=== PATIENT | female | born 1990 | race Caucasian/White ===

== ENCOUNTER 2020-12-29 16:28 | Outpatient (REF) | payer OTHER, SELFPAY ==
--- NOTE | 2020-12-29 16:00 | PAPFT_PTH ---
PATIENT: Mari Joy LOC: [facility]#:[id number] AGE/SX: 30/F ROOM: RE12/29/[address]: LEONELA Victoria : 1990 BED: DIS: 12/29/2020 SPEC #: [id number] RECD: 12/30/20 13:01 STATUS: MALICK FERNANDEZ #: [id number] LAQUITA: 12/29/20 16:[address]: Loretta Swan DEPT: [facility] Cytology RECD BY: Elaine Russell Tissues: 1 - CX/ENDOCX FOR PAP SMEARS Procedures: PAP THIN PREP/UVM Screening HPV DNA PROBE Comments: [id number]
== END 2020-12-29 16:29 | disposition home or self-care (01) ==
LOC: NCHCN 16:28
PROVIDERS: PCP Nurse Practitioner Family; Visit Provider Nurse Practitioner Family
DX: Z12.4 Encounter for screening for malignant neoplasm of cervix (principal); Z11.51 Encounter for screening for human papillomavirus (HPV)
CPT/HCPCS: 88142; 87624

== ENCOUNTER 2021-02-01 00:54 | Outpatient (CLI) | payer OTHER, SELFPAY ==
--- NOTE | 2021-02-01 07:35 | DI.US_ITS ---
APPROVED REPORT EXAM: Comprehensive 2D, Doppler, and color-flow Echocardiogram Patient Location: Out-Patient Human Resources Operations Director: Nga Payne RDCS (AE) Indications: Patenet foramen ovale Echo Enhancing Agent Indication: Rule out Shunt Agent(s) / Amount(s) Used: Agitated Saline 30.0 cc Comments: Contrast study was performed with 3 IV injections of 10ccs of agitated normal saline, at re st, with cough and post valsalva maneuver. Negative contrast study for shunt flow. Other Information Study Quality: Good Conclusion Normal left ventricular wall thickness and chamber size. Estimated ejection fraction is 60 to 65%. 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 Agitated saline injection disclosed no evidence of intracardiac shunt There is no structural or hemodynamically significant valvular disease Wall motion Left Ventricle The left ventricle is normal size. The left ventricular systolic function is normal. The left ventric ular ejection fraction is within the normal range. There is normal left ventricular wall thickness. T here is normal LV segmental wall motion. There is no ventricular septal defect visualized. LVEF is 60 -65%. Right Ventricle The right ventricle is normal size. The right ventricular systolic function is normal. The RVSP is 24 .3mmHg. Atria The left atrium size is normal. The right atrium size is normal. Atrial septum is slightly bowed towa rd the right. Saline bubble contrast intravenous injection does not demonstrate PFO. Aortic Valve The aortic valve is normal in structure. Aortic valve is trileaflet. There is no aortic valvular sten osis. No aortic regurgitation is present. Mitral Valve The mitral valve is normal in structure. No evidence of mitral valve stenosis. Trace mitral regurgita tion. Tricuspid Valve The tricuspid valve is normal in structure. There is no tricuspid valve stenosis. Trace tricuspid reg urgitation. Pulmonic Valve The pulmonary valve is normal in structure. There is no pulmonic valvular stenosis. There is no pulmo junie valvular regurgitation. Great Vessels The aortic root is normal in size. The ascending aorta is normal in size. IVC is normal in size and c ollapses >50% with inspiration. Pericardium There is no pericardial effusion. 2D Dimensions IVSD d PLAX 0.92 cm F: 0.6-1.0 LV Vol A2C d MOD 93.7 mL LVPW d PLAX 0.94 cm F: 0.6 - 1.0 LV Vol A4C d MOD 124.5 mL LVID d PLAX 4.81 cm F: 3.8 - 5.2 LA vol/ BSA A2C s A-L 21.8 mL/m2 LVDs 3.05 cm F: 2.2 - 3.5 LA vol/ BSA A4C s A-L 37.5 mL/m2 Ao Root d 2.41 cm F: 2.7 - 3.3 LA Vol/ BSA Biplane s A-L 32.9 mL/m2 RA Area A4C 13.41 cm2 LA Area A4C s MOD 20.72 cm2 RA Vol/ BSA A4C s A-L 18.9 mL/m2 LA Area A2C s MOD 13.68 cm2 Ao Asc Diam d 2.55 cm F: 2.3 - 3.1 LV EF A4C MOD 59.5 % LV EF Teichholz 65.6 % LV EF A2C MOD 60.4 % LVEF (Joyner's) 60.15 % F: 54 - 74 LV EF Biplane MOD 60.1 % LV Volume 84.99 mL F: 46 - 106 SV 66.73 mL LV Volume Index 45.20 mL/m2 F: 29 - 61 SV Index 35.52 mL/m2 LV Vol Biplane MOD 110.9 mL FS 36.05 % M-Mode TAPSE 2.70 cm (M/F) >1.7 LV Diastology MV E' medial 0.116 (>0.07 m/s) E/A Ratio 1.3 LV E/e MED 6.85 (<14) MV E Vmax 0.80 (0.4-1.3 m/s) MV E' lateral 0.150 (>0.1 m/s) MV A Vmax 0.60 (0.4-1.3 m/s) LV E/e LAT 5.25 (<14) MV E/A Ratio 1.24 MV E/E' medial 6.86 MV E/E' lateral 5.30 Aortic Valve LVOT Area 2.87 cm2 AoV Area Vmax 2.54 cm2 LVOT Vmax 1.06 m/s AoV Area/ BSA (Vmax) 1.35 cm2/m2 LVOT Mean Adonay. 0.71 m/s MINA Mean Adonay. 2.41 cm2 LVOT Peak Grad 4.5 mmHg MINA Mean Adonay. Index 1.28 cm2/m2 LVOT Mean Grad 2.3 mmHg LVOT VTI 0.275 m LVOT Diam s 1.90 cm AoV Vmax 1.20 m/s Velocity Ratio 0.88 AoV Mean Adonay. 0.85 m/s AoV Peak Grad 5.7 mmHg LVOT SV 79.15 mL AoV Mean Grad 3.2 mmHg AoV VTI 0.297 m AoV Area VTI 2.67 cm2 AoV Area/ BSA (VTI) 1.42 cm/m2 Mitral Valve MV DT 234 (160-240 msec) MV PHT 68 msec MV Area PHT 3.24 cm2 MV VTI 0.311 m MV VTI Annulus 0.330 m MV Area VTI 2.71 (4.0-6.0 cm2) Pulmonary Valve PV Vmax 0.89 (0.5-1.5 m/s) RVOT Peak Gr. 3.06 mmHg PV Peak Grad 3.2 mmHg RVOT Mean Gr. 1.40 mmHg PV Mean Grad 1.6 mmHg RVOT VTI 0.197 m PV VTI 0.222 m RVOT Vmax 0.88 m/s Tricuspid Valve TR Peak Grad 21.3 mmHg TR Vmax 2.31 m/s RA Pressure 3.00 mmHg RVSP (TR) 24.3 mmHg
== END 2021-02-01 01:14 ==
PROVIDERS: PCP Nurse Practitioner Family; Visit Provider Nurse Practitioner Family
DX: Q21.1 Atrial septal defect (principal)
CPT/HCPCS: 93306

== ENCOUNTER 2021-07-02 11:01 | Outpatient (CLI) | payer OTHER, SELFPAY ==
[2021-07-02 11:33] LABS: Source Nasal/Nares
[2021-07-02 14:17] LABS: COVID-19 PCR Negative (Negative)
== END 2021-07-02 11:02 | disposition home or self-care (01) ==
PROVIDERS: PCP Nurse Practitioner Family; Visit Provider Family Medicine
DX: Z20.822 Contact with and (suspected) exposure to COVID-19 (principal)
CPT/HCPCS: 87635

== ENCOUNTER 2021-10-06 03:52 | Outpatient (CLI) | payer OTHER, SELFPAY ==
[2021-10-06 15:49] LABS: Abs Immature Grans 0.03 10^3/uL (0.0-0.06); Absolute Basophil Count 0.04 10^3/uL (0.0-0.2); Absolute Eosinophil Count 0.21 10^3/uL (0.0-0.7); Absolute Lymphocyte Count 1.92 10^3/uL (1.2-3.4); Absolute Monocyte Count 0.58 10^3/uL (0.1-0.8); Absolute Neutrophil Count 5.68 10^3/uL (1.2-6.7); Basophils % 0.5; Eosinophils % 2.5; HCT 37.6 % (36.0-46.0); HGB 12.4 g/dL (11.2-15.7); Immature Grans % 0.4; Lymphocytes % 22.7; MCH 31.2 pg (27.0-33.0); MCV 94.5 fL (80-95); MPV 11.3 fL (8.0-11.0); Monocytes % 6.9; Nucleated RBC 0 %; Platelet Count 149 10^3/uL (130-400); RBC 3.98 10^6/uL (3.93-5.22); RDW-SD 44.7 fL; WBC 8.46 10^3/uL (4.4-10.8)
[2021-10-06 16:00] LABS: Kit/Specimen SENT
[2021-10-09 10:45] LABS: Hepatitis C Ab w Rflx HCV PCR Negative (Negative)
[2021-10-09 11:42] LABS: Hepatitis B Surface Ag Negative (Negative)
[2021-10-09 11:45] LABS: Varicella IgG Antibody Positive (See Note)
[2021-10-09 11:50] LABS: Rubella IgG Ab (UVM) Positive (See Note)
[2021-10-09 12:13] LABS: HIV-1/2 Ag & Ab Screen Negative (Negative)
[2021-10-11 15:55] LABS: Syphilis IgG w/Reflex Nonreactive (Nonreactive)
== END 2021-10-06 03:53 | disposition home or self-care (01) ==
LOC: LBO 03:52
PROVIDERS: Advanced Practice Midwife; PCP Nurse Practitioner Family; Visit Provider Advanced Practice Midwife
DX: Z34.91 Encounter for supervision of normal pregnancy, unspecified, first trimester (principal)
CPT/HCPCS: 36415; 86787; 86803; 86850; 86900; 86901; 87340; 87389; 84443; 85025; 86762; 86780

== ENCOUNTER 2021-10-06 16:43 | Outpatient (REF) | payer OTHER, SELFPAY ==
[2021-10-06 17:36] LABS: *AMPHETAMINES SCREEN URINE Negative (Negative); *BARBITURATES SCREEN URINE Negative (Negative); *BENZODIAZEPINES SCREEN URINE Negative (Negative); Cannabinoids THC Negative (Negative); Cocaine Screen,Urine Negative (Negative); METHADONE URINE SCREEN Negative (Negative); OPIATES URINE SCREEN Negative (Negative)
[2021-10-06 17:37] LABS: Tricyclic Antidepressants Negative (Negative)
[2021-10-09 15:33] LABS: Chlamydia Result Negative (Negative); GC Result Negative (Negative)
[2021-10-12 08:56] LABS: Buprenorphine Negative ng/mL (Cutoff: 5.0); Norbuprenorphine Negative ng/mL (Cutoff: 2.5)
== END 2021-10-06 16:44 | disposition home or self-care (01) ==
LOC: LBN 16:43
PROVIDERS: PCP Nurse Practitioner Family; Visit Provider Advanced Practice Midwife
DX: Z34.91 Encounter for supervision of normal pregnancy, unspecified, first trimester (principal)
CPT/HCPCS: 80307; 87491; 87591; 87086

== ENCOUNTER 2021-11-05 09:32 | Emergency (ER) | payer OTHER, SELFPAY ==
[2021-11-05 09:34] VITALS: BP 106/72; PULSE 67; RESP 16; TEMP 36.4; O2SAT 98
--- NOTE | 2021-11-05 10:05 | ED.GENADUL_ITS ---
Discharge Plan Disposition Patient Disposition: HOME Condition: Stable Discharge Details Clinical Impression: Hematoma of arm Primary Care Provider: Loretta Swan ED Provider: Tha Haley Home Meds and New Rx's Prescriptions: Continued prenat.vits,kirt,qhh-bkbh-awqht Tablet 1 tab PO DAILY 0RF salicylic acid 2 % cream 1 applic topical DAILY 0RF Discharge Instructions Instructions: Contusion in Adults (ED) Additional Instructions: Tetanus status is up-to-date. Your examination is consistent with a hematoma, no signs of infection at this time. Cool and/or warm compresses every 2 hours for 20 minutes. Please watch for new or worsening symptoms and return to the ER for any concerns. Medical Decision Making 31-year-old female, , qepya-dswa-sdbdnuij, tetanus status up-to-date, presents to the ER today for evaluation of a right wrist-forearm injury she sustained yesterday. She states that a blackberry thorn pricked her wrist. Denies any obvious foreign body. Denies numbness, tingling, weakness. Concern for hematoma versus infection. Clinically she appears well, nontoxic There is no of infection, examination is consistent with a hematoma. We discussed signs and symptoms of infection and standard discharge and return precautions were provided. Patient and family have no additional questions or concerns and are comfortable with this plan. This documentation was generated using Red Stampation system, please disregard any oddities of phrase or misspellings. Medical Records Medical records reviewed: Yes I reviewed the patient's medical records. HPI General Mode of arrival: ambulatory . Date/Time Provider Initiated Documentation: 11/05/21 09:42 . Limitations to Documentation: no limitations . Information obtained by: patient and family . History of Present Illness 31 year old F presents to the emergency department with the chief complaint of R wrist injury, described as mild, with intensity rated at 1. Quality is described as aching, and is localized to the right and upper extremity. Patient reports no radiation. Patient started experiencing this day(s) (1) and it has been constant. improves with No relieving factors improve symptom(s), No exacerbating factors reported . Patient notes no other symptoms.. Patient did receive the following treatments prior to arrival, none Related Data Home Medications Medication Instructions Recorded Confirmed prenat.vits,kirt,lin-ixcd-hxjjk 1 tab PO DAILY 08/23/21 11/05/21 salicylic acid 2 % topical cream 1 applic TOPICAL DAILY 10/06/21 11/05/21 Allergies Allergy/AdvReac Type Severity Reaction Status Date / Time cat dander Allergy Intermediate Verified 11/05/21 09:43 sulfamethoxazole Allergy Intermediate Verified 11/05/21 09:43 [From Bactrim] trimethoprim [From Bactrim] Allergy Intermediate Verified 11/05/21 09:43 cefaclor [From Ceclor] Allergy Unknown Verified 11/05/21 09:43 General Stated Complaint: RashLesion NAZIA: 4 Review of Systems Constitutional Constitutional: Denies fever(s) and Denies weakness Musculoskeletal Musculoskeletal: Denies deformity, Denies arthralgias, Denies numbness, Denies stiffness and Denies tingling Integumentary/Breasts Skin/Breast: Denies erythema Neurologic Neurologic: Denies numbness, Denies tingling and Denies weakness PFSH All Active Problems Hematoma of arm (Acute) Recurrent oral herpes simplex (Acute) PFO (patent foramen ovale) (Acute) normal echo 2020 (Acute) Medical History Amenorrhea Iron deficiency anemia Surgical History S/P left inguinal hernia repair (~2013) Family History Mother Depression Substance abuse Atrial septal defect open heart repair in early 40's Father Diabetes Hyperlipidemia Hypertension Sister No problems noted. Brother Hyperlipidemia Brother No problems noted. Maternal Grandfather , Late 80s Multiple myeloma Paternal Grandfather , in 40s from lung cancer Lung cancer Maternal Grandmother , at 94 from heart failure Heart disease Stroke Hypertension Dementia Parkinson disease Atrial fibrillation Paternal Grandmother Stroke Hyperlipidemia Social History Smoking/Tobacco Use Status: Never Second Hand Exposure: No Smoking risk assessment performed?: Yes Alcohol Intake: current Alcohol Intake frequency: a few times a month Alcohol type: beer Drug use: Never Substance use type: does not use Caregiver/Support person: No Household members: significant other Housing: house Communication Needs: None Do you need help understanding health information?: Never Pets and animals: Yes Pets and animals: dog(s) Sexually active: Yes Do you think of yourself as: straight/heterosexual Current gender identity: female What is your relationship status?: living with partner How often do you talk on the phone with friends or family?: three or more times per week How often do you get together with friends or relatives?: decline to answer How often do you attend moravian or yazidism services?: decline to answer Do you belong to any clubs or organized social groups?: decline to answer Panel score (0-1 are the most socially isolated patients): 2 What type of physical activity do you participate in: weight lifting and other Details: boxing,hiking Duration: 30-45 minutes/day Frequency: 3-4 times per week Aracely/Tenriism: No preference Special aracely needs: No Seatbelt use: always Helmet use: Yes Helmet use: always Drive intox or ride w/intox commercial driver's license driver: No Do you feel safe at home: Yes Do you feel safe in your relationship?: Yes History History 1 Para 0 Hx # Term Pregnancies 0 Multiple births 0 Hx # Pregnancies 0 Ectopic pregnancies 0 AB induced 0 Hx Number of Living Children 0 AB spontaneous 0 Exam Const General: cooperative, healthy appearing, comfortable and no acute distress Orientation: alert and awake HENIN Head: normal to inspection, normocephalic and atraumatic Eyes Conjunctivae: conjunctivae normal Neck Neck: normal visual inspection, trachea midline and supple Resp Effort & Inspection: normal respiratory effort and able to speak in complete sentences Cardio Rate: regular rate Rhythm: regular rhythm Skin General skin exam: no rashes or lesions noted Neuro General: patient alert, patient awake, moves all extremities and no focal motor deficits Cognition: normal cognition Speech: speech normal Gait: normal gait Motor: muscle tone normal throughout Sensory Exam: no sensory deficits noted Extrem General: full ROM and capillary refill normal Elbow/forearm/wrist images: 1. Contusion-hematoma. Centrally there is a puncture wound. There is no warmth, erythema, tenderness. No lymphangitic streaking. No induration or fluctuance. Normal radial pulse and capillary refill. Neuro, vascular, tendon intact. Psych Appearance: grossly normal Mental Status: mental status grossly normal Course Vital Signs Vital signs: Vital Signs Temperature 36.4 C L 11/05/21 09:34 Pulse 67 11/05/21 09:34 Respiratory Rate 16 11/05/21 09:34 Blood Pressure 106/72 11/05/21 09:34 Pulse Oximetry 98 11/05/21 09:34 Temperature 36.4 C L 11/05/21 09:34 Temperature Source Skin 11/05/21 09:34 Pulse 67 11/05/21 09:34 Respiratory Rate 16 11/05/21 09:34 Respiratory Effort 11/05/21 09:41 Blood Pressure 106/72 11/05/21 09:34 Blood Pressure Position Supine 11/05/21 09:34 Pulse Oximetry 98 11/05/21 09:34 Oxygen Delivery Method Room Air 11/05/21 09:34 Oxygen Flow Rate 0 11/05/21 09:34 Pain Level 3 11/05/21 09:34
== END 2021-11-05 10:09 | disposition home or self-care (01) ==
PROVIDERS: Emergency Provider Physician Assistant; PCP Nurse Practitioner Family
DX: S60.211A Contusion of right wrist, initial encounter (principal); W26.8XXA Contact with other sharp object(s), not elsewhere classified, initial encounter
CPT/HCPCS: 99282

== ENCOUNTER 2021-11-16 04:18 | Outpatient (CLI) | payer OTHER, SELFPAY | END 2021-11-16 04:19 | disposition home or self-care (01) | LOC: LBO 04:18 | PROVIDERS: PCP Nurse Practitioner Family; Visit Provider Advanced Practice Midwife ==

== ENCOUNTER 2021-11-23 02:05 | Outpatient (CLI) | payer OTHER, SELFPAY ==
[2021-11-27 11:03] LABS: AFP 62.1 ng/mL; Calculated age at EDD 31 years; GA used in risk estimate Scan estimate; IVF Pregnancy No; Initial or repeat testing Initial testing; Insulin dependent diabetes No; Maternal Weight 166 lbs; Number of Fetuses 1; Physician Phone Number 802-748-7300; Prev Pregnancy w/NTD No; RECOMMENDED FOLLOW UP None.; Results Summary Normal risk
[2021-11-27 18:15] LABS: Specimen WB Whole Blood
[2021-12-07 00:33] LABS: Result Summary NEGATIVE; Specimen WB Whole Blood
== END 2021-11-23 02:06 | disposition home or self-care (01) ==
LOC: LBO 02:05
PROVIDERS: PCP Nurse Practitioner Family; Visit Provider Advanced Practice Midwife
DX: Z34.92 Encounter for supervision of normal pregnancy, unspecified, second trimester (principal); Z36.89 Encounter for other specified antenatal screening; Z3A.19 19 weeks gestation of pregnancy
CPT/HCPCS: 36415; 81329; 81220; 82105

== ENCOUNTER 2022-01-04 03:31 | Outpatient (CLI) | payer OTHER, SELFPAY | END 2022-01-04 03:32 | disposition home or self-care (01) | LOC: LBO 03:31 | PROVIDERS: PCP Nurse Practitioner Family; Visit Provider Obstetrics & Gynecology ==

== ENCOUNTER 2022-01-09 03:13 | Outpatient (CLI) | payer OTHER, SELFPAY ==
[2022-01-09 10:58] LABS: Abs Immature Grans 0.04 10^3/uL (0.0-0.06); Absolute Basophil Count 0.02 10^3/uL (0.0-0.2); Absolute Lymphocyte Count 1.57 10^3/uL (1.2-3.4); Absolute Monocyte Count 0.46 10^3/uL (0.1-0.8); Basophils % 0.2; Eosinophils % 1.2; Glucose,1 Hr (Glucola) 94 mg/dL (80-140); HCT 36.2 % (36.0-46.0); HGB 11.8 g/dL (11.2-15.7); Immature Grans % 0.5; Lymphocytes % 18.5; MCH 32.2 pg (27.0-33.0); MCHC 32.6 % (32.0-36.0); MCV 99 fL (80-95); MPV 11.6 fL (8.0-11.0); Monocytes % 5.4; Neutrophils % 74.2; Platelet Count 144 10^3/uL (130-400); RBC 3.67 10^6/uL (3.93-5.22); RDW 13.7 % (11.7-14.6); WBC 8.49 10^3/uL (4.4-10.8)
== END 2022-01-09 03:14 | disposition home or self-care (01) ==
LOC: LBO 03:13
PROVIDERS: PCP Nurse Practitioner Family; Visit Provider Obstetrics & Gynecology
DX: Z34.92 Encounter for supervision of normal pregnancy, unspecified, second trimester (principal); Z3A.26 26 weeks gestation of pregnancy
CPT/HCPCS: 36415; 82950; 85025

== ENCOUNTER 2022-03-23 17:11 | Outpatient (REF) | payer OTHER, SELFPAY ==
[2022-03-23 18:34] LABS: *AMPHETAMINES SCREEN URINE Negative (Negative); *BARBITURATES SCREEN URINE Negative (Negative); *BENZODIAZEPINES SCREEN URINE Negative (Negative); Cannabinoids THC Negative (Negative); Cocaine Screen,Urine Negative (Negative); METHADONE URINE SCREEN Negative (Negative); OPIATES URINE SCREEN Negative (Negative)
[2022-03-23 18:35] LABS: Tricyclic Antidepressants Negative (Negative)
[2022-03-29 14:31] LABS: Buprenorphine Negative ng/mL (Cutoff: 5.0); Norbuprenorphine Negative ng/mL (Cutoff: 2.5)
== END 2022-03-23 17:12 | disposition home or self-care (01) ==
LOC: LBN 17:11
PROVIDERS: PCP Nurse Practitioner Family; Visit Provider Obstetrics & Gynecology
DX: Z34.93 Encounter for supervision of normal pregnancy, unspecified, third trimester (principal); Z36.85 Encounter for antenatal screening for Streptococcus B; Z3A.36 36 weeks gestation of pregnancy
CPT/HCPCS: 80307; 87081

== ENCOUNTER 2022-04-10 23:04 | Emergency (ER) | payer OTHER, SELFPAY ==
--- NOTE | 2022-04-10 23:08 | NUR.NOTE ---
patient entered on tracker in error, center admission.Nursing Note:
== END 2022-04-10 23:08 | disposition left before discharge ==
PROVIDERS: PCP Nurse Practitioner Family
DX: Z53.21 Procedure and treatment not carried out due to patient leaving prior to being seen by health care provider (principal)

== ENCOUNTER 2022-04-10 23:36 | Inpatient (IN) | payer OTHER, SELFPAY ==
[2022-04-10 23:25] VITALS: BP 121/58; PULSE 66; RESP 18; TEMP 36.9
--- NOTE | 2022-04-10 23:38 | HPE_ITS ---
Date of service: 04/10/22 Time of Service: 23:38 Assessment and Plan Assessment and plan (1) Uterine contractions: Status: Acute Assessment and plan: Admit. Will consider AROM Pain management via morphine vs epidural OB-HPI Labor/Delivery History of Present Illness Reason for Visit: PRE YASMIN Chief Complaint: Uterine Contractions. JEROD Calculator Estimated Delivery Date Method Current WG Current Estimate 04/14/22 Ultrasound #1 39w 3d Other Estimates 04/11/22 LMP (Certain) 39w 6d 04/16/22 Ultrasound #2 39w 1d History of Present Expected Delivery Route/Plan - FOB/ - To Elena (first child) Doesn't want to know gender (no circ if male) Specific Issues/Plan 1. Both patient and partner are vaccinated 2. Patient has PFO has not required surgery 3. Slightly enlarged thyroid, TSH nml @ 0.6 4. Panorama desired (is aware insurance does not cover): result=low risk x5, gender not reported 4a. CF-neg, SMA- neg,, AFP single marker-neg 5. Has lower right abdominal pain that she is seeing PT for is chronic for a few years now - improving with pelvic PT 6. Cervical bleeding at 28w. (01/26/22) Not related to trauma. VE unremarkable. Siver Nitrate applied to cervix. Narrative: Pt has been having intermittent contractions for 3 days ranging from 5-20min apart but never consistently 5min apart for more then an hour until this evening. No leaking fluid or bleeding. Good movement. She has not been able to sleep more then 24min in 3 days and is exhausted. Review of Systems Constitutional Constitutional: Reports system reviewed and no additional complaints, except as documented Gastrointestinal Gastrointestinal: Denies nausea and Denies vomiting Genitourinary Genitourinary: Reports system reviewed and no additional complaints, except as documented Musculoskeletal Comments: No regular contractions PFSH All Active Problems (Updated 04/10/22 @ 23:47 by Keyla Min MD) Uterine contractions (Acute) GERD (gastroesophageal reflux disease) (Chronic) Recurrent oral herpes simplex (Acute) PFO (patent foramen ovale) (Acute) normal echo 2020 (Acute) Medical History Amenorrhea Iron deficiency anemia Surgical History S/P left inguinal hernia repair (~2013) Family History Mother Depression Substance abuse Atrial septal defect open heart repair in early 40's Father Diabetes Hyperlipidemia Hypertension Sister No problems noted. Brother Hyperlipidemia Brother No problems noted. Maternal Grandfather , Late 80s Multiple myeloma Paternal Grandfather , in 40s from lung cancer Lung cancer Maternal Grandmother , at 94 from heart failure Heart disease Stroke Hypertension Dementia Parkinson disease Atrial fibrillation Paternal Grandmother Stroke Hyperlipidemia Social History Smoking/Tobacco Use Status: Never Second Hand Exposure: No Smoking risk assessment performed?: Yes Alcohol Intake: current Alcohol Intake frequency: a few times a month Alcohol type: beer Drug use: Never Substance use type: does not use Caregiver/Support person: No Household members: significant other Housing: house Communication Needs: None Do you need help understanding health information?: Never Pets and animals: Yes Pets and animals: dog(s) Sexually active: Yes Do you think of yourself as: straight/heterosexual Current gender identity: female What is your relationship status?: living with partner How often do you talk on the phone with friends or family?: three or more times per week How often do you get together with friends or relatives?: decline to answer How often do you attend caodaism or scientology services?: decline to answer Do you belong to any clubs or organized social groups?: decline to answer Panel score (0-1 are the most socially isolated patients): 2 What type of physical activity do you participate in: weight lifting and other Details: boxing,hiking Duration: 30-45 minutes/day Frequency: 3-4 times per week Aracely/Gnosticism: No preference Special aracely needs: No Seatbelt use: always Helmet use: Yes Helmet use: always Drive intox or ride w/intox equipment driver: No Do you feel safe at home: Yes Do you feel safe in your relationship?: Yes History History 1 Para 0 Hx # Term Pregnancies 0 Multiple births 0 Hx # Pregnancies 0 Ectopic pregnancies 0 AB induced 0 Hx Number of Living Children 0 AB spontaneous 0 Meds Allergies and Home Medications Allergies Allergy/AdvReac Type Severity Reaction Status Date / Time cat dander Allergy Intermediate Verified 04/06/22 10:14 sulfamethoxazole Allergy Intermediate Verified 04/06/22 10:14 [From Bactrim] trimethoprim [From Bactrim] Allergy Intermediate Verified 04/06/22 10:14 cefaclor [From Ceclor] Allergy Unknown Verified 04/06/22 10:14 Home Medications Medication Instructions Recorded Confirmed Type prenat.vits,kirt,rmu-uaxt-pvrag 1 tab PO DAILY 08/23/21 04/06/22 History salicylic acid 2 % topical cream 1 applic topical DAILY 10/06/21 04/06/22 History omeprazole 40 mg capsule,delayed 40 mg PO DAILY #30 caps 02/09/22 04/06/22 Rx release ferrous sulfate 325 mg (65 mg 325 mg PO DAILY 02/23/22 04/06/22 History iron) tablet (FeroSul) Exam Detailed Labor and Delivery Exam Dilation: 4 Effacement (%): 90 station: -1 Cervix position: mid Consistency: soft Zhong Score: Cervical Points Exam 0 1 2 3 Dilation Closed 1-2cm 3-4 cm 5-6cm Effacement 0-30% 40-50% 60-70% 80% Consistency Firm Medium Soft Station -3 -2 -1,0 +1,+2 Position Posterior Mid Anterior Amniotic Membrane Status: Intact Contraction Frequency(min): q5min Fetus A Heart Rate Baseline: 150 Monitor Accelerations: 15 X 15 Monitor Decelerations: None Variability: Moderate (6-25 BPM) Presentation: Cephalic Categories: Category I Detailed HEENT Exam Head: Present normocephalic and atraumatic Detailed Abdominal Exam Comments: gravid, nontender Detailed Neurological Exam Neurological: Present alert, oriented X3 and CN II-XII intact DetailedPsychiatric Exam Psychiatric: Present normal affect, normal thought process and cooperative Risk Assessment Risk for Shoulder Dystocia Historical/Initial OB: NEGATIVE FOR: Pelvic Abnormality, Pre- BMI>30, Previous Shoulder Dystocia or Previous Macrosomia Risk for Pre-Eclampsia Date Initiated/Initials: 10/06/21 KH Yes, if one or more: NEGATIVE FOR: Hx Pre-E/Gest HTN, Chronic HTN, Multiple Gestation, Pre-gestational DM, Renal Disease, Systemic Lupus or APA Syndrome Yes, if 2 or more: POSITIVE FOR: Nulliparity; NEGATIVE FOR: Age>= 35 yrs, >10yr btwn pregnancies, BMI>30, ethinicty, Mother/Sister w/ Pre-E or Previous IUGR Risk for Post- Hemorrhage Initial: NEGATIVE FOR: Multiple Gestation, Previous PPH, Known Clotting Deficiency, Grand Multiparity or Anticoagulation Risks Reviewed Risks Reviewed Upon Admission: Yes
[2022-04-10 23:40] VITALS: BP 121/58; PULSE 66; RESP 18; TEMP 36.9
--- NOTE | 2022-04-10 23:54 | W.ANESPRE ---
General Info Date of Service Date Performed: 04/10/22 Height: 5 ft 9 in Weight: 86.75 kg Body Mass Index (BMI): 28.2 Meds Allergies and Home Medications Allergies Allergy/AdvReac Type Severity Reaction Status Date / Time cat dander Allergy Intermediate Verified 04/06/22 10:14 sulfamethoxazole Allergy Intermediate Verified 04/06/22 10:14 [From Bactrim] trimethoprim [From Bactrim] Allergy Intermediate Verified 04/06/22 10:14 cefaclor [From Ceclor] Allergy Unknown Verified 04/06/22 10:14 Home Medication Medication Instructions Recorded prenat.vits,kirt,dxm-hjyz-yqape 1 tab PO DAILY 08/23/21 salicylic acid 2 % topical cream 1 applic topical DAILY 10/06/21 omeprazole 40 mg capsule,delayed 40 mg PO DAILY #30 caps 02/09/22 release ferrous sulfate 325 mg (65 mg 325 mg PO DAILY 02/23/22 iron) tablet (FeroSul) PFSH Active Problems Active Problems: Problem Status Onset Code Uterine contractions O47.9 GERD (gastroesophageal reflux disease) K21.9 Recurrent oral herpes simplex B00.2 PFO (patent foramen ovale) Q21.1 Z34.90 Medical History Medical History Amenorrhea Iron deficiency anemia Surgical History Surgical History S/P left inguinal hernia repair (~2013) Tobacco Smoking/Tobacco Use Status: Never Second hand exposure: No Alcohol Alcohol Intake: current Alcohol intake frequency: a few times a month Alcohol type: beer Substance Use Substance use: Never Substance use type: does not use Prental History History 1 Para 0 Hx # Term Pregnancies 0 Multiple births 0 Hx # Pregnancies 0 Ectopic pregnancies 0 AB induced 0 Hx Number of Living Children 0 AB spontaneous 0 Vital Signs and Lab Results Vital Signs Most Recent Vital Signs in EMR: Most Recent Vital Signs Temp Pulse Resp BP 36.9 C 66 18 121/58 L 04/10/22 23:25 04/10/22 23:25 04/10/22 23:25 04/10/22 23:25 Lab Results Blood Type / Crossmatch: No Data to Display Complete Blood Count: No Data to Display Complete Metabolic Panel: No Data to Display Liver Function Panel: No Data to Display Coagulation Panel: No Data to Display Cardiac Panel: No Data to Display Arterial Blood Gas: No Data to Display Venous Blood Gas: No Data to Display Pancreas Panel: No Data to Display Thyroid Panel: No Data to Display Infectious Disease: No Data to Display Blood Cultures: No Data to Display Toxicology Panel: Urine Amphetamines Screen Negative (Negative) 03/23/22 17:31 Urine Benzodiazepines Screen Negative (Negative) 03/23/22 17:31 Urine Barbiturates Screen Negative (Negative) 03/23/22 17:31 Urine Cocaine Screen Negative (Negative) 03/23/22 17:31 Urine Methadone Screen Negative (Negative) 03/23/22 17:31 Urine Opiates Screen Negative (Negative) 03/23/22 17:31 Ur Tricyclic Antidepressants Screen Negative (Negative) 03/23/22 17:31 Ur Tetrahydrocannabinol (THC) Scrn Negative (Negative) 03/23/22 17:31 Panel: No Data to Display Anesthesia Assessment and Plan Anesthesia History Personal History: No History of Anesthesia Complications Family History: No Family History of Anesthesia Complications Exercise Tolerance Exercise Tolerance: Metabolic Equivalents>4 Pertinent Negatives Pertinent Negatives: No Symptoms of GERD, No Major Pulmonary Symptoms or Complaints and No History of CVA/TIA Cardiac & Pulmonary Exam Cardiac Exam: Normal S1/S2 Heart Sounds (Patent PFO) Pulmonary Exam: Clear Bilateral Breath Sounds Implantable Cardiac Device Does patient have a Pacemaker or an ICD?: No Airway Exam Known Difficult Airway: No Mallampati Class: 2 Mouth Opening: Normal (> 3cm) Thyromental Distance: Greater than 3 cm Neck Range of Motion: Full ROM Neck Circumference: Normal Teeth Condition: Normal Dentition ASA Classification ASA Score: ASA 2 Emergency Case?: No NPO Status NPO Status: NPO Clears >2 hours, Solids >8 hours Status Status: Confirmed Anesthesia Plan Resuscitation Status: Full Code Anesthesia Technique: Epidural Anesthesia Airway Planned: Natural Airway Pain Management: Epidural Monitors Used: Standard Monitors
[2022-04-10 23:57] VITALS: BMI 28.2
[2022-04-11] VITALS (45 sets, daily range): BP systolic 110–135; BP diastolic 55–85; PULSE 53–76; RESP 17–18; TEMP 36.3–37; O2SAT 99–100
[2022-04-11] MEDS: FentaNYL/ROPIvacaine 2 mcg/ml and 0.1% 200 ML CADD Cassette EP ×2 (01:00→12:38)
[2022-04-11] MEDS: Lactated Ringers 500 ML IV (01:05)
[2022-04-11 01:13] LABS: HCT 38.5 % (36.0-46.0); HGB 13.1 g/dL (11.2-15.7); MCH 32.3 pg (27.0-33.0); MCV 95 fL (80-95); MPV 13.6 fL (8.0-11.0); Platelet Count 141 10^3/uL (130-400); RBC 4.06 10^6/uL (3.93-5.22); RDW 13.2 % (11.7-14.6); RDW-SD 45.5 fL
--- NOTE | 2022-04-11 01:19 | ANES.NEUR_ITS ---
Epidural/Spinal Catheter Date Performed: 04/11/22 Procedure Start: 00:58 Procedure Stop: 01:12 Requesting Provider: Keyla Min Procedure Location: Obstetrics Reason Performed: Labor Epidural Standard Monitors Applied: Blood Pressure, SpO2 and See EMR for corresponding vital signs Patient Position: Sitting Sedation Given (Indicate Dose Given): No Sedation given Patient Mental Status: Awake Sterility: Hand Hygiene, Surgical Cap, Surgical Mask, Sterile Gloves, Sterile Drape/Sheet and Chlorhexidine Procedure Location: L4-L5 Interspace Epidural Needle: Tuohy 17 Guage Needle Length: 3.5 Inch Needle Approach: Midline Epidural Procedure: Skin Prepped, Sterile Drape Placed, 1% Lidocaine to skin and subcutaneous tissue with 25G needle, Tuohy Needle placed, CHANTAL to Saline Used, Epidural Catheter Placed, Negative Heme, Negative CSF Flow and Tuohy Needle Removed Catheter Placed?: Catheter Placed Test Dose (Indicate Dose Given): 5ml 1.5% Lidocaine with 1:200K Epinephrine Given and Negative Test Dose Loss of Resistance Depth (cm): 7 Catheter depth at skin (cm): 15 Dressing: Sorbaview Dressing Placed, Mastisol Used and Dressing reinforced with Tape Epidural Prov ider Bolus (Indicate Dose Given): Total Ropivacaine 0.1% with Fentanyl 2mcg/ml Given from pump. (ml) Dose:: 8 Additives (Indicate Dose Given ): None Infusion Medication: Medication Infusion Began Medication Infusion: Ropivacaine 0.1% with Fentanyl 2mcg/ml Maintenance Infusion Rate (ml/hour): 10 PCEA Bolus Dose (ml): 5 Block Level: T10 Paresthesia: Right Paresthesia Duration: Transient Ultrasound: Not Used Number of Attempts (See previous attempts in note section): 1 Procedure Tolerated: No Complications and Patient tolerated well Procedure Outcome: Successful Performed By: Paul Apodaca
[2022-04-11] MEDS: Lactated Ringers 1,000 ML 125 ML IV ×2 (01:30→12:36)
--- NOTE | 2022-04-11 06:18 | W.PM.OBNL1 ---
Date of service: 04/11/22 Time of Service: 06:18 Pelvic Exam Dilation: 6 Effacement (%): 90 station: -1 Position: LOP Vaginal Exam Presentation: Cephalic Comments: AROM with very minimal fluid. Tinged by bloody flow from exam. Contractions Contraction Frequency(min): 2-5min Fetus A Heart Rate Baseline: 145 Presentation: Cephalic Variability: Moderate (6-25 BPM) Categories: Category I Characteristics: Normal Accelerations: 15 X 15 Decelerations: None Amniotic Membrane Status: Ruptured Rupture Method: Artifical Amniotic Fluid: Bloody Date of Membrane Rupture: 04/11/22 Time of Membrane Rupture: 06:15 Assessment and Plan Assessment and plan (1) Uterine contractions: Status: Acute Assessment and plan: S/p AROM. Will recheck in a few hours for progress. Will do position changes. Objective Abnormal lab results 04/11/22 Range/Units 00:46 WBC 10.90 H (4.4-10.8) 10^3/uL MPV 13.6 H (8.0-11.0) fL Temp Pulse Resp BP Pulse Ox 98.4 F 72 18 119/57 L 100 04/10/22 23:40 04/11/22 05:57 04/11/22 05:21 04/11/22 05:57 04/11/22 05:21 Laboratory Results WBC 10.90 10^3/uL (4.4-10.8) H 04/11/22 00:46 RBC 4.06 10^6/uL (3.93-5.22) 04/11/22 00:46 Hgb 13.1 g/dL (11.2-15.7) 04/11/22 00:46 Hct 38.5 % (36.0-46.0) 04/11/22 00:46 MCV 95 fL (80-95) 04/11/22 00:46 MCH 32.3 pg (27.0-33.0) 04/11/22 00:46 MCHC 34.0 % (32.0-36.0) 04/11/22 00:46 RDW 13.2 % (11.7-14.6) 04/11/22 00:46 Plt Count 141 10^3/uL (130-400) 04/11/22 00:46 MPV 13.6 fL (8.0-11.0) H 04/11/22 00:46 Patient ABO/Rh A Positive 04/11/22 00:46 Antibody Screen NEGATIVE 04/11/22 00:46 Subjective Interval history since last seen: Pt comfortable s/p epidural and has been able to sleep. Results Hemoglobin/Hematocrit: Hgb 13.1 g/dL (11.2-15.7) 04/11/22 00:46 Hct 38.5 % (36.0-46.0) 04/11/22 00:46 Abnormal Lab Findings: Abnormal Labs 04/11/22 00:46 WBC 10.90 H MPV 13.6 H
--- NOTE | 2022-04-11 08:52 | W.PM.OBNL1 ---
Date of service: 04/11/22 Time of Service: 08:20 Pelvic Exam Dilation: 8 Effacement (%): 90 station: -1 Position: OP Vaginal Exam Presentation: Cephalic Contractions Contraction Frequency(min): q2-4 Fetus A Heart Rate Baseline: 145 Variability: Moderate (6-25 BPM) Categories: Category I FHR Rhythm: Regular Accelerations: 15 X 15 Decelerations: None Amniotic Membrane Status: Ruptured Rupture Method: Artifical Assessment and Plan Assessment and plan (1) Uterine contractions: Status: Acute Assessment and plan: Will continue with position changes. Objective Abnormal lab results 04/11/22 Range/Units 00:46 WBC 10.90 H (4.4-10.8) 10^3/uL MPV 13.6 H (8.0-11.0) fL Temp Pulse Resp BP Pulse Ox 98.4 F 66 17 129/68 100 04/10/22 23:40 04/11/22 08:34 04/11/22 07:14 04/11/22 08:34 04/11/22 05:21 Laboratory Results WBC 10.90 10^3/uL (4.4-10.8) H 04/11/22 00:46 RBC 4.06 10^6/uL (3.93-5.22) 04/11/22 00:46 Hgb 13.1 g/dL (11.2-15.7) 04/11/22 00:46 Hct 38.5 % (36.0-46.0) 04/11/22 00:46 MCV 95 fL (80-95) 04/11/22 00:46 MCH 32.3 pg (27.0-33.0) 04/11/22 00:46 MCHC 34.0 % (32.0-36.0) 04/11/22 00:46 RDW 13.2 % (11.7-14.6) 04/11/22 00:46 Plt Count 141 10^3/uL (130-400) 04/11/22 00:46 MPV 13.6 fL (8.0-11.0) H 04/11/22 00:46 Patient ABO/Rh A Positive 04/11/22 00:46 Antibody Screen NEGATIVE 04/11/22 00:46 Subjective Interval history since last seen: Pt still comfortable with epidural. Results Hemoglobin/Hematocrit: Hgb 13.1 g/dL (11.2-15.7) 04/11/22 00:46 Hct 38.5 % (36.0-46.0) 04/11/22 00:46 Abnormal Lab Findings: Abnormal Labs 04/11/22 00:46 WBC 10.90 H MPV 13.6 H
[2022-04-11 10:31] LABS: Source Nasal/Nares
[2022-04-11 11:08] LABS: COVID-19 PCR Negative (Negative)
--- NOTE | 2022-04-11 13:02 | W.PM.OBNL1 ---
Date of service: 04/11/22 Time of Service: 13:00 Pelvic Exam Dilation: 9 Effacement (%): 90 station: -1 Position: LOP Contractions Contraction Frequency(min): q2-4 Fetus A Heart Rate Baseline: 145 Variability: Moderate (6-25 BPM) Categories: Category I Accelerations: 15 X 15 Decelerations: None Assessment and Plan Assessment and plan (1) Uterine contractions: Status: Acute Assessment and plan: Baby still OP position and not coming down further. Will place IUPC and likely start pitocin. Continue position changes. Objective Abnormal lab results 04/11/22 Range/Units 00:46 WBC 10.90 H (4.4-10.8) 10^3/uL MPV 13.6 H (8.0-11.0) fL Temp Pulse Resp BP Pulse Ox 98.6 F 55 L 17 119/62 100 04/11/22 11:18 04/11/22 11:18 04/11/22 07:14 04/11/22 11:18 04/11/22 05:21 Laboratory Results WBC 10.90 10^3/uL (4.4-10.8) H 04/11/22 00:46 RBC 4.06 10^6/uL (3.93-5.22) 04/11/22 00:46 Hgb 13.1 g/dL (11.2-15.7) 04/11/22 00:46 Hct 38.5 % (36.0-46.0) 04/11/22 00:46 MCV 95 fL (80-95) 04/11/22 00:46 MCH 32.3 pg (27.0-33.0) 04/11/22 00:46 MCHC 34.0 % (32.0-36.0) 04/11/22 00:46 RDW 13.2 % (11.7-14.6) 04/11/22 00:46 Plt Count 141 10^3/uL (130-400) 04/11/22 00:46 MPV 13.6 fL (8.0-11.0) H 04/11/22 00:46 COVID-19 Source Nasal/Nares 04/11/22 10:05 SARS-CoV-2 (PCR) Negative (Negative) 04/11/22 10:05 Patient ABO/Rh A Positive 04/11/22 00:46 Antibody Screen NEGATIVE 04/11/22 00:46 Vital Signs Reviewed: Yes Subjective Interval history since last seen: Pt still comfortable with epidural. Changing positions Results Hemoglobin/Hematocrit: Hgb 13.1 g/dL (11.2-15.7) 04/11/22 00:46 Hct 38.5 % (36.0-46.0) 04/11/22 00:46 Abnormal Lab Findings: Abnormal Labs 04/11/22 00:46 WBC 10.90 H MPV 13.6 H
[2022-04-11] MEDS: Acetaminophen 500 MG TAB 1000 MG PO (13:17)
[2022-04-11] MEDS: Oxytocin/Normal Saline 30 UNIT/500 ML BAG 2 UNITS IV (14:10)
--- NOTE | 2022-04-11 14:31 | W.PM.OBNL1 ---
Date of service: 04/11/22 Time of Service: 14:30 Pelvic Exam Dilation: 9.5 Effacement (%): 90 station: 0 Position: LOP Fetus A Heart Rate Baseline: 150 Variability: Moderate (6-25 BPM) Accelerations: Absent Decelerations: None Assessment and Plan Assessment and plan (1) Uterine contractions: Status: Acute Assessment and plan: Anesthesia to assess for more adequate pain management. Will try to switch to right lateral position since the cervix is remaining on the right side. Objective Abnormal lab results 04/11/22 Range/Units 00:46 WBC 10.90 H (4.4-10.8) 10^3/uL MPV 13.6 H (8.0-11.0) fL Temp Pulse Resp BP Pulse Ox 98.6 F 58 L 17 124/59 L 100 04/11/22 14:08 04/11/22 14:08 04/11/22 07:14 04/11/22 14:08 04/11/22 05:21 Laboratory Results WBC 10.90 10^3/uL (4.4-10.8) H 04/11/22 00:46 RBC 4.06 10^6/uL (3.93-5.22) 04/11/22 00:46 Hgb 13.1 g/dL (11.2-15.7) 04/11/22 00:46 Hct 38.5 % (36.0-46.0) 04/11/22 00:46 MCV 95 fL (80-95) 04/11/22 00:46 MCH 32.3 pg (27.0-33.0) 04/11/22 00:46 MCHC 34.0 % (32.0-36.0) 04/11/22 00:46 RDW 13.2 % (11.7-14.6) 04/11/22 00:46 Plt Count 141 10^3/uL (130-400) 04/11/22 00:46 MPV 13.6 fL (8.0-11.0) H 04/11/22 00:46 COVID-19 Source Nasal/Nares 04/11/22 10:05 SARS-CoV-2 (PCR) Negative (Negative) 04/11/22 10:05 Patient ABO/Rh A Positive 04/11/22 00:46 Antibody Screen NEGATIVE 04/11/22 00:46 Subjective Interval history since last seen: Feeling more pain from contractions, mostly on her left side. Results Hemoglobin/Hematocrit: Hgb 13.1 g/dL (11.2-15.7) 04/11/22 00:46 Hct 38.5 % (36.0-46.0) 04/11/22 00:46 Abnormal Lab Findings: Abnormal Labs 04/11/22 00:46 WBC 10.90 H MPV 13.6 H
--- NOTE | 2022-04-11 14:41 | PDOC.ANES ---
Date of service: 04/11/22 Time of Service: 14:30 Anesthesia Note Report Anesthesia Note: Patient reports that she has had increased pain in the left side and minimal coverage since the epidural was placed. Dr. Min at bedside and plan to continue pitocin. Epidural catheter was pulled back to 13cm from 15cm at the skin and redressed. Clinician bolus of 6 mL administered and plan for patient to rest left side down in an attempt to improve coverage.
--- NOTE | 2022-04-11 17:57 | OBVDS_ITS ---
Date of service: 04/11/22 Time of Service: 17:57 OB Labor/ Delivery Information Baby A Delivery Delivery Method: Spontaneaous Presentation: Vertex Cephalic Position: Vertex Vertex Position: Right Occipital Anterior Cord Description-Baby A: 3 Vessels and Other (Spontaneous rupture of umbilical vein at delivery which did not allow for delayed cord clamping) Amniotic Fluid: Clear Estimated Blood Loss: 300 Delivery Outcome: Liveborn Transferred: Remains with Mother Note: Patient is a 31-year-old female who had care through [facility]. She presented in early active labor at term. She did have her labor managed by Dr. Min. She received epidural for pain control and Pitocin augmentation of her labor along with intrauterine pressure catheter to evaluate for adequacy of contractions. She progressed to the point that she was completely dilated in the occiput anterior position. A second stage huddle was performed. With good maternal effort, after approximately 45 minutes of maternal effort she delivered a viable female . Shoulders followed with ease. There was a three-vessel cord that was noted, though shortly after delivery of the trunk, there was noted to be a laceration of an umbilical vein. This precluded delayed cord clamping and the cord was clamped at the time of delivery. Placenta followed with ease and was noted to be intact. On inspection of the perineum, there was noted to be a left labial first-degree laceration which was repaired after infiltration with 1% lidocaine and a simple interrupted suture of 4-0 Vicryl. This area was then hemostatic. Uterus was firm and 3 cm below the umbilicus after delivery. Qualitative blood loss was measured at 300 mL. Good maternal bonding was appreciated and baby was skin to skin. Providers Doctor: Michelle Root [employer]el Truck Technician: Paul Apodaca Nurse: Ariana Alvarado Nurse: Renetta Funez Labor/Delivery Information Number of Babies in Womb: 1 Steroids Given: None Reason Steroids Not Administered: N/A Group Beta Strep: Negative Antibiotics Administered: No Shoulder Dystocia: No Stages of Labor Onset of Labor Date: 04/10/22 Onset of Labor Time: 20:00 Complete Dilatation Date: 04/11/22 Complete Dilatation Time: 15:36 Labor - Stage 1 Duration: 24 hours and 0 minutes ROM Baby A: 04/11/22 ROM Baby A: 06:15 ROM Total Time- Baby A: [id number] Infant Delivery Date-Baby A: 04/11/22 Delivery Time-Baby A: 17:08 Labor Stage 2 Duration: 1 hours and 32 minutes Placenta Delivery Date-Baby A: 04/11/22 Placenta Delivery Time-Baby A: 17:13 Labor-Stage 3 Duration: 5 minutes Total Length of Labor-Baby A: 21 hours and 8 minutes Placenta Status: Delivered Baby A Gender: Female Gestational Status: Term (39-41.6 wks) Gestational Age in Weeks/Days: 39 Weeks and 4 Days Score-1 Minute Interval(Baby A) Heart Rate-1 minute: 100 BPM or Greater Respiratory Effort- 1 minute: Spontaneous/Strong Cry Muscle Tone-1 minute: Active Movement Reflex Response-1 minute: Prompt Response Color-1 minute: Pallor or Cyanosis Total Score-1 minute: 8 Score-5 Minute Interval(Baby A) Heart Rate- 5 minute: 100 BPM or Greater Respiratory Effort-5 minute: Spontaneous/Strong Cry Muscle Tone-5 minute: Active Movement Reflex Response-5 minute: Prompt Response Color-5 minute: Pallor or Cyanosis Total Score- 5 minute: 8
[2022-04-11] MEDS: Ibuprofen 600 MG TAB PO (18:09)
[2022-04-11] MEDS: Hamamelis Leaf/Glycerin 100 EACH BOX PR (18:10)
[2022-04-11] MEDS: Dibucaine 1% 28 GM TUBE TP (18:10)
[2022-04-11] MEDS: Acetaminophen 325 MG TAB 650 MG PO (21:15)
[2022-04-12] MEDS: Ibuprofen 600 MG TAB PO ×3 (04:53→19:39)
[2022-04-12 06:53] LABS: HCT 32.8 % (36.0-46.0); HGB 11.1 g/dL (11.2-15.7); MCH 32.6 pg (27.0-33.0); MCHC 33.8 % (32.0-36.0); MCV 96 fL (80-95); MPV 13.4 fL (8.0-11.0); Platelet Count 106 10^3/uL (130-400); RBC 3.41 10^6/uL (3.93-5.22); RDW 13.4 % (11.7-14.6); RDW-SD 47.6 fL; WBC 14.86 10^3/uL (4.4-10.8)
[2022-04-12] MEDS: Acetaminophen 325 MG TAB 650 MG PO ×2 (08:32→20:19)
[2022-04-12 09:26] VITALS: BP 112/72; PULSE 62; RESP 18; TEMP 36.6; O2SAT 98
--- NOTE | 2022-04-12 09:49 | W.ANESPOSTOP ---
Postoperative Evaluation Date, Time and Location Date Performed: 04/12/22 Time Performed: 09:49 Patient Location: Obstetrics Vital Signs Most Recent Imported Vital Signs: Most Recent Vital Signs Temp Pulse Resp BP Pulse Ox 36.6 C 62 18 112/72 98 04/12/22 09:26 04/12/22 09:26 04/12/22 09:26 04/12/22 09:26 04/12/22 09:26 Pain Score Most Recent Pain Score: Most Recent Pain Score Pain Level 3 04/12/22 08:32 Assessment Mental Status: Awake (Alert & Oriented to Patient Baseline) Airway and Respiratory Function: Patent airway with normal (patient baseline) respiratory exam Cardiovascular Function: Hemodynamically Stable Hydration Status: Adequately Hydrated Nausea & Vomiting: No Nausea or Vomiting Pain: Pt. Denies Any Pain Peripheral Nerve Block: Other (Epidural appropriately resolved, denied complaint, denied headache, denied backpain. Per RN catheter removed with tip intact.)
--- NOTE | 2022-04-12 10:01 | W.PM.OBPNV1 ---
Date of service: 04/12/22 Time of Service: 10:01 Assessment and Plan Assessment and plan (1) Normal spontaneous vaginal delivery: Status: Acute Assessment and plan: day #1 status postnormal spontaneous vaginal delivery. Doing well. Anticipate discharge home today. Subjective Subjective Interval history: Patient seen and examined this morning. Doing well. Breast-feeding without difficulty. She did get a few hours of uninterrupted rest. She and her are considering discharge home today. Patient's Mood: Appropriate Bixby feeding status: Exclusively breast feeding Exam Physical Exam Vital signs: Temp Pulse Resp BP Pulse Ox 97.9 F 62 18 112/72 98 04/12/22 09:26 04/12/22 09:26 04/12/22 09:26 04/12/22 09:26 04/12/22 09:26 Vital Signs Reviewed: Yes Constitutional Constitutional: no acute distress HEENT Exam HEENT Exam: Normal Neck Exam Neck Exam: Normal Respiratory Exam Respiratory Exam: Normal Cardiovascular Exam Cardiovascular Exam: Normal Abdominal Exam Comments: Soft and nontender Fundal Exam Fundus: Below Umbilicus Extremities Exam Extremity Exam: Normal; negative Calf Tenderness Neurological Exam Neurological Exam: Normal Psychiatric Exam Psychiatric Exam: Normal Results Hemoglobin/Hematocrit: Hgb 11.1 g/dL (11.2-15.7) L D 04/12/22 06:30 Hct 32.8 % (36.0-46.0) L 04/12/22 06:30 Abnormal Lab Findings: Abnormal Labs 04/11/22 04/12/22 00:46 06:30 WBC 10.90 H 14.86 H RBC 3.41 L Hgb 11.1 L D Hct 32.8 L MCV 96 H Plt Count 106 L MPV 13.6 H 13.4 H
--- NOTE | 2022-04-12 10:03 | W.PM.OBDISCH ---
Date of service: 04/12/22 Time of Service: 10:03 DS: Diagnosis Discharge Diagnosis (1) Normal spontaneous vaginal delivery: Status: Acute Asessment and Plan: day #1 status postnormal spontaneous vaginal delivery. Anticipate discharge home today. Follow-up in the office in 2 and 6 weeks. Patient will use condoms for contraception. All questions were answered. Discharge Plan Disposition Patient Disposition: HOME Condition: Good Discharge Details Reason For Visit: Normal spontaneous vaginal delivery Admit Date/Time: 04/10/22 23:36 Admit Provider: Keyla Min Attending Provider: Keyla Min Primary Care Provider: [facility] Course Hospital Course: Patient was admitted to the center in early active labor. She had a normal course of labor and required epidural for pain control. She did receive Pitocin augmentation of her labor and went on to the point that she was completely dilated with a vertex occiput anterior position. For approximately 45 minutes with good maternal effort and pushing, she was able to deliver a viable female with Apgars of 8 and 8. She had an uncomplicated course and was discharged home day #1 ambulating, tolerating regular diet and oral pain medication with stable vital signs. Her discharge hemoglobin was 11.1. She was exclusively breast-feeding with appropriate bonding. She will be seen back in the office in 2 and 6 weeks. She will be using condoms for contraception. Home Meds and New Rx's Prescriptions: New ibuprofen 800 mg tablet 800 mg PO Q8H PRNQty: 30 0RF No Action prenat.vits,kirt,yzh-qeol-gcnht Tablet 1 tab PO DAILY omeprazole 40 mg capsule,delayed release(DR/EC) 40 mg PO DAILY Qty: 30 3RF salicylic acid 2 % cream 1 applic topical DAILY ferrous sulfate [FeroSul] 325 mg (65 mg iron) tablet 325 mg PO DAILY Discharge Instructions Additional Instructions: Follow-up with Dr. Root in 2 and 6 weeks Stand Alone Forms: BC Instructions, BC Post Vaginal Deliver Activity:: Pelvic rest for 6 weeks Activity:: Activity as Tolerated Equipment/Supplies:: No Equipment Needed Diet:: As Tolerated Discharge Orders Discharge Orders: Discharge Order (Routine); Ordered 04/12/22 Ordered By: Michelle Root OB:DS Summary Summary Vaginal Delivery Method: Spontaneaous Episiotomy Description: None Laceration Description: Other Laceration Extension: First Degree Contraception Discussed Contraception Discussed: Yes Contraceptive Plan: Foam/Condoms, Infant Gender-Baby A: Female weight: 7 lb 13.223 oz Status at Discharge Functional status at discharge: independent ambulation Overall status at discharge: patient is back to baseline Mental Status: mental status grossly normal Speech and Movement: speech and movement normal Mood: congruent mood Affect: normal affect Exam Physical Exam Vital signs: Temp Pulse Resp BP Pulse Ox 97.9 F 62 18 112/72 98 04/12/22 09:26 04/12/22 09:26 04/12/22 09:26 04/12/22 09:26 04/12/22 09:26 Narrative: Please see physical exam from progress note dated 04/12/2022 PFSH All Active Problems Normal spontaneous vaginal delivery (Acute) Uterine contractions (Acute) GERD (gastroesophageal reflux disease) (Chronic) Recurrent oral herpes simplex (Acute) PFO (patent foramen ovale) (Acute) normal echo 2020 (Acute) Medical History Amenorrhea Iron deficiency anemia Surgical History S/P left inguinal hernia repair (~2013) Family History Mother Depression Substance abuse Atrial septal defect open heart repair in early 40's Father Diabetes Hyperlipidemia Hypertension Sister No problems noted. Brother Hyperlipidemia Brother No problems noted. Maternal Grandfather , Late 80s Multiple myeloma Paternal Grandfather , in 40s from lung cancer Lung cancer Maternal Grandmother , at 94 from heart failure Heart disease Stroke Hypertension Dementia Parkinson disease Atrial fibrillation Paternal Grandmother Stroke Hyperlipidemia Social History Smoking/Tobacco Use Status: Never Second Hand Exposure: No Smoking risk assessment performed?: Yes Alcohol Intake: current Alcohol Intake frequency: a few times a month Alcohol type: beer Drug use: Never Substance use type: does not use Caregiver/Support person: No Household members: significant other Housing: house Communication Needs: None Do you need help understanding health information?: Never Pets and animals: Yes Pets and animals: dog(s) Sexually active: Yes Do you think of yourself as: straight/heterosexual Current gender identity: female What is your relationship status?: living with partner How often do you talk on the phone with friends or family?: three or more times per week How often do you get together with friends or relatives?: decline to answer How often do you attend scientology or latter day services?: decline to answer Do you belong to any clubs or organized social groups?: decline to answer Panel score (0-1 are the most socially isolated patients): 2 What type of physical activity do you participate in: weight lifting and other Details: boxing,hiking Duration: 30-45 minutes/day Frequency: 3-4 times per week Aracely/Scientology: No preference Special aracely needs: No Seatbelt use: always Helmet use: Yes Helmet use: always Drive intox or ride w/intox coach driver: No Do you feel safe at home: Yes Do you feel safe in your relationship?: Yes History History 1 Para 0 Hx # Term Pregnancies 0 Multiple births 0 Hx # Pregnancies 0 Ectopic pregnancies 0 AB induced 0 Hx Number of Living Children 0 AB spontaneous 0 DS: Data Vitals/I&O Vitals and I&O: Vital Signs Temperature 97.9 F 04/12/22 09:26 Pulse 62 04/12/22 09:26 Pulse Rhythm Regular 04/11/22 19:35 Respiratory Rate 18 04/12/22 09:26 Blood Pressure 112/72 04/12/22 09:26 Blood Pressure Mean 85 04/12/22 09:26 Pulse Oximetry 98 04/12/22 09:26 Oxygen Delivery Method Room Air 04/10/22 23:40 Oxygen Flow Rate 0 04/10/22 23:40 Pain Level 3 04/12/22 08:32 Intake & Output 04/11/22 04/11/22 04/12/22 11:59 23:59 11:59 Intake Total 1550 / 2053.434 503.434 / 2053.434 550 / 550 Output Total 1700 / 3125 1425 / 3125 400 / 400 Balance -150 / -1071.566 -921.566 / -1071.566 150 / 150 Weight 191 lb 4 oz Intake: IV 1000 / 1503.434 503.434 / 1503.434 Oral 550 / 550 550 / 550 Output: Urine 1700 / 2825 1125 / 2825 400 / 400 Blood 300 / 300 Other: Urine Color Yellow Yellow Urine Appearance Clear Comment 16 icelandic faria inserted Data Completed and Pending Labs on day of discharge: Labs from last 24 hours 04/12/22 04/11/22 06:30 10:05 WBC 14.86 H RBC 3.41 L Hgb 11.1 L D Hct 32.8 L MCV 96 H MCH 32.6 MCHC 33.8 RDW 13.4 Plt Count 106 L MPV 13.4 H COVID-19 Source Nasal/Nares SARS-CoV-2 (PCR) Negative
[2022-04-12 11:36] VITALS: BP 109/60; PULSE 74; RESP 18; TEMP 37.1; O2SAT 98
[2022-04-12 23:30] VITALS: BP 131/67; PULSE 83; RESP 18; TEMP 36.5
[2022-04-13] MEDS: Acetaminophen 325 MG TAB 650 MG PO ×2 (01:30→06:34)
[2022-04-13] MEDS: Ibuprofen 600 MG TAB PO ×2 (01:30→06:35)
== END 2022-04-13 06:55 | disposition home or self-care (01) | DRG 807 ==
PROVIDERS: Obstetrics & Gynecology; Admitting Provider Obstetrics & Gynecology; PCP Nurse Practitioner Family; Visit Provider Obstetrics & Gynecology
DX: O99.02 Anemia complicating childbirth (principal); Z37.0 Single live birth; O71.89 Other specified obstetric trauma; O70.0 First degree perineal laceration during delivery; O99.62 Diseases of the digestive system complicating childbirth; Z3A.39 39 weeks gestation of pregnancy; K21.9 Gastro-esophageal reflux disease without esophagitis; D50.9 Iron deficiency anemia, unspecified; O69.89X0 Labor and delivery complicated by other cord complications, not applicable or unspecified
CPT/HCPCS: 36415; 85027; 86850; 86900; 86901; 87635; G0378; J3490

== ENCOUNTER 2023-01-01 02:47 | Outpatient (CLI) | payer OTHER, SELFPAY ==
[2023-01-03 11:01] LABS: TB Interpretation Negative (Negative)
== END 2023-01-01 02:48 | disposition home or self-care (01) ==
PROVIDERS: PCP Nurse Practitioner Family; Visit Provider Nurse Practitioner Family
DX: Z11.1 Encounter for screening for respiratory tuberculosis (principal)
CPT/HCPCS: 36415; 86480